=== PATIENT | female | born 1980 ===

== ENCOUNTER 2020-12-20 12:15 | Inpatient (IN) | payer OTHER ==
[~2020-12-20] VITALS: Ht 172.7 cm; Wt 88.9 kg
[2020-12-20] MEDS ORDERED: LEVOTHYROXINE25 MCG PO (16:42)
== END 2020-12-24 12:19 | disposition home or self-care (01) | DRG 743 ==
LOC: O/R 12-21 10:03 → SURH 12-21 12:15 → SURG-SUITE 12-22 15:55
PROVIDERS: ADMIT Specialist; ATTEND Specialist
PROC: 0DNW0ZZ Release Peritoneum, Open Approach (ICD-10-PCS; 2020-12-21)
PROC: 0DN80ZZ Release Small Intestine, Open Approach (ICD-10-PCS; 2020-12-21)
PROC: 0DNN0ZZ Release Sigmoid Colon, Open Approach (ICD-10-PCS; 2020-12-21)
PROC: 0UB20ZZ Excision of Bilateral Ovaries, Open Approach (ICD-10-PCS; principal; 2020-12-21 13:00)
DX: D27.1 Benign neoplasm of left ovary (principal); D27.0 Benign neoplasm of right ovary; N73.6 Female pelvic peritoneal adhesions (postinfective); N99.4 Postprocedural pelvic peritoneal adhesions; N73.5 Female pelvic peritonitis, unspecified; E03.9 Hypothyroidism, unspecified